=== PATIENT | male | born 1960 | race Caucasian/White ===

== ENCOUNTER 2017-01-19 11:58 | Emergency (ER) | payer OTHER ==
[~2017-01-19] VITALS: Ht 172.7 cm; Wt 74.0 kg
[2017-01-19 12:00] VITALS: BP 150/84
[2017-01-19] MEDS ORDERED: DIPH,PERTUSS(ACELL),TET VAC/PF 0.5 ML IM-VACC ONE ×2 (12:28→12:30)
[2017-01-19] MEDS ORDERED: CEFAZOLIN 1,000 MG ONE (12:28)
[2017-01-19] MEDS ORDERED: CEFAZOLIN 1,000 MG IM ONE (12:30)
[2017-01-19] MEDS ORDERED: LIDOCAINE 2%, 20ML SQ ONE (12:30)
[2017-01-19] MEDS ORDERED: LIDOCAINE-MPF 2% ,5ML ONE (12:33)
[2017-01-19] MEDS ORDERED: LIDOCAINE 1%, 20ML ONE (12:48)
[2017-01-19] MEDS ORDERED: BACITRACIN ZINC OINT 500U/GM, 0.9 GM ONE (13:54)
== END 2017-01-19 14:26 | disposition home or self-care (01) ==
LOC: ED 13:02
DX: S71.131A Puncture wound without foreign body, right thigh, initial encounter (principal); W20.8XXA Other cause of strike by thrown, projected or falling object, initial encounter; Y93.89 Activity, other specified; Y92.009 Unspecified place in unspecified non-institutional (private) residence as the place of occurrence of the external cause; Y99.9 Unspecified external cause status
CPT/HCPCS: 12001; 73552; 90471; 90715; 96372; 99284; J0690